=== PATIENT | female | born 1980 | race Caucasian/White ===

== ENCOUNTER 2022-03-27 15:16 | Outpatient (REF) | payer OTHER, SELFPAY ==
[2022-03-27 16:12] LABS: Venous Blood Gas Refer to POC result
[2022-03-27 16:32] LABS: Lactic Acid 3.9 mmol/L (0.5-2.0)
[2022-03-27 16:33] LABS: Alanine Aminotransferase 41 U/L (0-31); Alkaline Phosphatase 81 U/L (39-117); Anion Gap 18 (12-20); Aspartate Amino Transferase 50 U/L (5-31); Bilirubin Direct 0.2 mg/dL (0.0-0.5); Bilirubin Total 0.4 mg/dL (0.0-1.0); Blood Urea Nitrogen 15 mg/dL (9-16); Calcium 10.1 mg/dL (8.4-10.2); Carbon Dioxide 20 mmol/L (22-29); Chloride 105 mmol/L (96-108); Estimated Glomerular Filt Rate > 60; Potassium 4.4 mmol/L (3.3-5.1); Sodium 139 mmol/L (135-145)
[2022-03-27 16:37] LABS: VBG Base Excess -4.2 mmol/L; VBG HCO3 19 mmol/L (22-26); VBG pCO2 29 mmHg; VBG pO2 42 mmHg
[2022-03-27 17:39] LABS: Appearance Urine Cloudy; Color Urine Yellow; Glucose Urine UA Negative (Negative); Leukocyte Esterase Urine Small (1+) (Negative); Nitrite Urine Negative (Negative); PH 5.5 (5.0-9.0); Specific Gravity - Urine 1.025 (1.005-1.025); UMIC TRIGGER UA YES; Urine Blood Negative (Negative); Urine Ketones 15 mg/dL (Negative); Urine Protein Trace mg/dL (Neg-Trace)
[2022-03-27 17:44] LABS: Bacteria Urine 1+ (None Seen); Hyaline Casts Urine 0-2 /LPF (0-2); RBC Urine 0-2 /HPF (0-2); WBC Urine 21-50 /HPF (0-5)
[2022-03-27 18:11] LABS: Creatinine Urine 188.75 mg/dL; Microalbum/Creatinine Ratio Ur 49.2 ug/mg cr; Protein/Creatinine Ratio, Ur 0.13 (<0.2); Total Protein Urine Random 25 mg/dL (<12)
== END 2022-03-27 15:17 | disposition home or self-care (01) ==
LOC: HO.LAB 15:16
PROVIDERS: Visit Provider Internal Medicine Nephrology
DX: I10 Essential (primary) hypertension (principal); E87.20 Acidosis, unspecified
CPT/HCPCS: 36415; 80051; 81001; 82043; 82247; 82248; 82310; 82565; 82803; 83605; 84075; 84156; 84450; 84460; 84520